=== PATIENT | male | born 1995 | race Caucasian/White ===

== ENCOUNTER 2016-08-21 21:39 | Emergency (ER) | payer OTHER ==
[2016-08-21] MEDS ORDERED: PROPARACAINE 0.5% OPHTH DROPS 15 ML LEFTEYE STA (21:40)
[2016-08-21 21:44] VITALS: BP 140/77
[2016-08-21] MEDS ORDERED: PROPARACAINE 0.5% OPHTH DROPS 15 ML ONE (21:45)
[2016-08-21] MEDS ORDERED: ERYTHROMYCIN OPHTH OINT 1 GM TUBE LEFTEYE STA (21:50)
--- NOTE | 2016-08-21 21:52 | ED Physician Documentation ---
PD HPI OPHTHO - Stated complaint Stated Complaint: LT EYE SCRATCH - Chief complaint Chief Complaint: Heent - History obtained from History obtained from: Patient - History of Present Illness Timing - onset: Other (Scratched his left eye with a screwdriver just prior to arrival work, active duty. Vision is normal.) Review of Systems Constitutional: denies: Fever, Chills Eyes: reports: Irritation. denies: Loss of vision, Decreased vision, Photophobia Ears: denies: Loss of hearing, Ear pain Nose: denies: Rhinorrhea / runny nose, Congestion PD PAST MEDICAL HISTORY - Present Medications Home Medications: Ambulatory Orders Medication Instructions Recorded Confirmed Erythromycin Base [Erythromycin] 1 applic OP 5XD 7 Days 08/21/16 - Allergies Allergies/Adverse Reactions: Allergies Allergy/AdvReac Type Severity Reaction Status Date / Time No Known Drug Allergies Allergy Verified 08/21/16 21:44 PD ED PE NORMAL - Vitals Vital signs reviewed: Yes - General General: Alert and oriented X 3, No acute distress - HEENT HEENT: PERRL, EOMI, Other (Linear corneal abrasion inferiorly on fluorescein exam measuring 1 x 2 mm or so. Negative Ashely sign.) - Neck Neck: Supple, no meningeal sign, No bony TTP - Neuro Neuro: Alert and oriented X 3, Normal speech - Psych Psych: Normal mood, Normal affect Results - Vitals Vitals: Vital Signs - 24 hr 08/21/16 21:42 Temperature 36.6 C Heart Rate 60 Respiratory 17 Rate Blood Pressure 140/77 H O2 Saturation 100 Oxygen O2 Source Room air Departure - Departure Disposition: 01 Home, Self Care Clinical Impression: Corneal abrasion, left Qualifiers: Encounter type: initial encounter Qualified Code(s): S05.02XA - Injury of conjunctiva and corneal abrasion without foreign body, left eye, initial encounter Condition: Good Record reviewed to determine appropriate education?: Yes Instructions: ED Eye Injury Corneal Abrasion Prescriptions: Erythromycin Base [Erythromycin] 1 applic OP 5XD 7 Days Comments: [place], Motrin as needed for pain. Your blood pressure was elevated today on check in to the emergency department. This does not mean that you have hypertension, it is a common phenomenon to check into the emergency department and have elevated blood pressure. I recommend that you see your primary care physician within the week to have it rechecked when you're feeling better.
== END 2016-08-21 22:16 | disposition home or self-care (01) ==
LOC: ED 21:39
DX: S05.02XA Injury of conjunctiva and corneal abrasion without foreign body, left eye, initial encounter (principal); W22.8XXA Striking against or struck by other objects, initial encounter; R03.0 Elevated blood-pressure reading, without diagnosis of hypertension
CPT/HCPCS: 99283; J3490

== ENCOUNTER 2021-12-19 13:47 | Outpatient (CLI) | payer OTHER ==
--- NOTE | 2021-12-19 17:21 | MRI Report ---
PROCEDURE: Hand RT W/O INDICATIONS: PAIN IN RIGHT FINGERS TECHNIQUE: Noncontrast oblique coronal T1 spin echo and T2 fast spin echo with fat saturation, axial and sagitta l T2 fast spin echo with fat saturation, through the thumb. COMPARISON: None. FINDINGS: Image quality: Excellent. Bones: The bones are normally aligned, without marrow contusions or fractures. No intra-osseous les ions. First carpometacarpal joint: On sagittal images, the dorsal radial ligament and posterior oblique li gament appear intact. The intermetacarpal ligament between the 1st and 2nd metacarpal bases also rachel ears intact. On the volar aspect, the deep and superficial layers of the anterior oblique ligament m ildly thickened suggestive of low-grade ligament sprain. First metacarpophalangeal joint: The proper and accessory components of the radial collateral ligame nt appears intact, along with overlying fibers of the abductor pollicis brevis tendon. The proper an d accessory components of the ulnar collateral ligaments appear thickened with mild adjacent soft tis bryce edema. The overlying fibers of the adductor pollicis muscle are grossly intact. The aponeurosis of the adductor pollicis muscle also appears normal. The volar plate appears intact on sagittal imag es, situated between the radial and ulnar sesamoids. Thenar muscles: The superficial abductor pollicis longus muscle appears normal, with tendon insertin g on the radial base of the first proximal phalanx. The opponens pollicis muscle also appears normal , inserting on the first metacarpal shaft. The flexor pollicis brevis muscle appears normal, with te ndon inserting on the radial sesamoid and first proximal phalanx. The oblique and transverse heads o f the adductor pollicis muscle appear normal, inserting on the ulnar sesamoid and proximal phalanx as part of the adductor aponeurosis. Flexor pollicis longus tendon: Tendon fibers appear intact, coursing between the thenar eminence mus cles and the adductor pollicis muscle, and inserting on the volar base of the distal phalanx. The fi rst annular heaven at the level of the first MCP joint appears intact, intimate with the sesamoids. The second annular heaven at the level of interphalangeal joint also appears intact. The oblique zulay ular heaven between the 1st and 2nd annular pulleys appears intact, with ulnar proximal attachment in timate with the adductor aponeurosis. The variable annular heaven also appears intact between the fi rst annular and oblique annular pulleys. Extensor tendons: The extensor pollicis brevis tendon appears intact, coursing radial to the extenso r pollicis longus tendon and inserting on the dorsal base of the proximal phalanx, blending with the dorsal plate of the first MCP joint. The extensor pollicis longus tendon appears intact as it insert s on the dorsal base of the distal phalanx. The sagittal band at the level of the first MCP joint ap pears intact. The abductor pollicis longus tendon slips appear intact at the radial aspect of the pr oximal phalanx, proximal to the abductor pollicis brevis tendon insertion. Miscellaneous: No ganglion cysts. IMPRESSION: 1. Finding is suggestive of low-grade sprain involving deep and superficial layer of anterior oblique ligament at first CMC joint. 2. Finding is suggestive of low-grade sprain involving ulnar collateral ligament of first MCP joint. 3. No marrow edema. No fracture or dislocation. 4. Extensor and flexor tendons are grossly intact. Reviewed by: Jeramie Webster MD on 12/19/2021 5:20 PM PDT Approved by: Jeramie Webster MD on 12/19/2021 5:20 PM PDT Station ID: [id number]
== END 2021-12-19 13:48 | disposition home or self-care (01) ==
LOC: DI 13:47
PROVIDERS: ATTEND Physician Assistant
DX: M79.644 Pain in right finger(s) (principal)